=== PATIENT | male | born 1960 | race African-American/Black ===

== ENCOUNTER 2018-09-12 08:41 | Emergency (ER) | payer SELFPAY | END 2018-09-12 09:08 | disposition home or self-care (01) | LOC: ERS 08:41 | DX: S76.311A Strain of muscle, fascia and tendon of the posterior muscle group at thigh level, right thigh, initial encounter (principal); X50.1XXA Overexertion from prolonged static or awkward postures, initial encounter | CPT/HCPCS: 99282 ==